=== PATIENT | male | born 1975 | race Caucasian/White ===

== ENCOUNTER 2020-09-10 09:27 | Day surgery (SDC) | payer BC ==
--- NOTE | 2020-09-10 09:11 | PCM.PREANE ---
Preanesthetic Assessment - Anesthesia/Transfusion/Family Hx Anesthesia History: Prior Anesthesia Without Reaction Other Type of Anesthesia Reaction Comment: hx: motion sickness, denies any known prblm w/anesthesia in past Transfusion History: Prior Transfusion Without Reaction - Review of Systems General: No Symptoms Pulmonary: No Symptoms Cardiovascular: No Symptoms Gastrointestinal: No Symptoms Neurological: No Symptoms Other: Reports: None - Physical Assessment NPO Status Date: 09/10/20 NPO Status Time: 00:00 Height: 5 ft 11 in Weight: 213 lb ASA Class: 2 Mental Status: Alert & Oriented x3 Airway Class: Mallampati = 2 Dentition: Reports: Normal Dentition ROM/Head Extension: Full Lungs: Clear to Auscultation, Normal Respiratory Effort Cardiovascular: Regular Rate, Regular Rhythm - Allergies Allergies/Adverse Reactions: Allergies Allergy/AdvReac Type Severity Reaction Status Date / Time No Known Allergies Allergy Verified 09/08/20 16:09 - Acknowledgements Anesthesia Type Planned: General Anesthesia Pt an Appropriate Candidate for the Planned Anesthesia: Yes Alternatives and Risks of Anesthesia Discussed w Pt/Guardian: Yes Pt/Guardian Understands and Agrees with Anesthesia Plan: Yes PreAnesthesia Questionnaire HEENT History: Reports: Other (See Below) Other HEENT History: wears glasses Cardiovascular History: Reports: High Cholesterol Other Cardiovascular History: was prescribed medication for cholesterol but doesn't take it Respiratory History: Reports: None Gastrointestinal History: Reports: Chronic Diarrhea, GERD, Hiatal Hernia Other Gastrointestinal History: takes OTC [employer] occasionally, c/o left side abdominal pain Genitourinary History: Reports: None Musculoskeletal History: Reports: Back Pain, Chronic Neurological History: Reports: Other (See Below) Other Neuro History: Claustrophobic Psychiatric History: Reports: None Endocrine/Metabolic History: Reports: None Hematologic History: Reports: None Immunologic History: Reports: None Oncologic (Cancer) History: Reports: None Dermatologic History: Reports: None - Past Surgical History Head Surgeries/Procedures: Reports: None Cardiovascular Surgical History: Reports: None GI Surgical History: Reports: Cholecystectomy, Other (See Below) Other GI Surgeries/Procedures: Excision of Mesenteric cyst- had post-op bleeding and was in ICU for many days Male Surgical History: Reports: None Endocrine Surgical History: Reports: None Neurological Surgical History: Reports: None Musculoskeletal Surgical History: Reports: None Oncologic Surgical History: Reports: None Dermatological Surgical History: Reports: None - SUBSTANCE USE Tobacco Use Status *Q: Current Some Day Tobacco User Tobacco Use Within Last Twelve Months: Snuff/Dip Recreational Drug Use History: No - HOME MEDS Home Medications: Home Meds . [No Known Home Meds] 07/16/14 [History] - CURRENT (IN HOUSE) MEDS Current Meds: Current Medications Lactated Ringer's (Ringers, Lactated) 1,000 mls @ 125 mls/hr IV ASDIRECTED AMPARO Discontinued Medications Propofol (Diprivan 100 Ml) Confirm Administered Dose 100 mls @ as directed .ROUTE .STK-MED ONE Stop: 09/10/20 08:32
[~2020-09-10 09:27] MED LIST: Lactated Ringers 1,000 ML IV SCH; propofoL 100 ML ONE
[2020-09-10] MEDS ORDERED: fentaNYL 100 MCG/2 ML SDV ONE (10:58)
[2020-09-10] MEDS ORDERED: Lidocaine 2% 5 ML SDV ONE (11:31)
[2020-09-10] MEDS ORDERED: Ondansetron 4 MG/2 ML SDV ONE (11:31)
--- NOTE | 2020-09-10 11:34 | PCM.POSTAN ---
POST ANESTHESIA ASSESSMENT - MENTAL STATUS Mental Status: Alert, Oriented - VITAL SIGNS Vital Signs: Last Vital Signs Temp 97.5 F 09/10/20 10:40 Pulse 69 09/10/20 10:40 Resp 16 09/10/20 10:40 BP 144/85 H 09/10/20 10:40 Pulse Ox 98 09/10/20 10:40 - RESPIRATORY Respiratory Status: Respiratory Rate WNL, Airway Patent, O2 Saturation Stable - CARDIOVASCULAR CV Status: Pulse Rate WNL, Blood Pressure Stable - GASTROINTESTINAL GI Status: No Symptoms - POST OP HYDRATION Hydration Status: Adequate & Stable
--- NOTE | 2020-09-10 11:35 | PCM48HPAN ---
Post Anesthesia Note - EVALUATION WITHIN 48HRS OF ANESTHETIC Vital Signs in Normal Range: Yes Patient Participated in Evaluation: Yes Respiratory Function Stable: Yes Airway Patent: Yes Cardiovascular Function Stable: Yes Hydration Status Stable: Yes Pain Control Satisfactory: Yes Nausea and Vomiting Control Satisfactory: Yes Mental Status Recovered: Yes Vital Signs: Last Vital Signs Temp 97.5 F 09/10/20 10:40 Pulse 69 09/10/20 10:40 Resp 16 09/10/20 10:40 BP 144/85 H 09/10/20 10:40 Pulse Ox 98 09/10/20 10:40
--- NOTE | 2020-09-10 11:41 | PCM.OPNOTE ---
- General Post-Op/Procedure Note Date of Surgery/Procedure: 09/10/20 Operative Procedure(s): Colonoscopy Pre Op Diagnosis: Decreased stool caliber Post-Op Diagnosis: No evidence of neoplasia Anesthesia Technique: MAC (ASA II) Primary Surgeon: Nam Fregoso Condition: Good Free Text/Narrative:: Intake & Output 09/09/20 09/10/20 09/10/20 19:59 03:59 11:59 Intake Total 900 Balance 900 DICTATION [id number] CPT CODE 02751
[2020-09-10] MEDS ORDERED: Lactated Ringers 1,000 ML IV SCH (11:45)
[2020-09-10 12:18] VITALS: BP 120/80; PULSE 77
--- NOTE | 2020-09-10 12:46 | OR ---
SURGEON: Nam Fregoso M.D. DATE OF PROCEDURE: 09/10/2020 OPERATION PERFORMED: Colonoscopy. PRIMARY SURGEON: Nam Fregoso MD ANESTHESIA: MAC. ASA CLASSIFICATION: II. PREOPERATIVE DIAGNOSES: Change in bowel habits with decreasing caliber of stool. POSTOPERATIVE DIAGNOSIS: No evidence of neoplasia. DESCRIPTION OF PROCEDURE: The patient was taken to the endoscopy room, positioned on the endoscopy table in the left lateral decubitus position. Time-out was called for appropriate identification of the patient and procedure. Monitored anesthesia care was provided. The colonoscope was inserted into the rectum and advanced with minimal difficulty to the cecum. The cecum was identified by internal landmarks and external pressure. The colonoscope was retroflexed in the cecum to visualize the ascending colon from below, then straightened, and slowly withdrawn. The cecum, ascending colon, hepatic flexure, transverse colon, splenic flexure, descending colon, sigmoid colon, and rectum were very well visualized. No tumors, polyps, diverticula, or angiodysplastic changes were noted. There was no appearance of extrinsic compression to the colon anywhere along the lower gastrointestinal tract. Once the colonoscope was withdrawn to the rectum, it was retroflexed to visualize the anal orifice from above. Again, no tumors or polyps were seen and there were no obvious stricture or neoplastic process noted in the rectum. The colonoscope was then straightened, the rectum aspirated, and the colonoscope removed. The patient tolerated the procedure well and was taken to recovery room in stable condition. KEITH / TOPHER /[id number]
== END 2020-09-10 12:18 | disposition home or self-care (01) ==
LOC: MW.SDS 09:27
PROVIDERS: ATTEND Surgery
DX: R19.4 Change in bowel habit (principal); E78.00 Pure hypercholesterolemia, unspecified; F17.210 Nicotine dependence, cigarettes, uncomplicated; Z01.812 Encounter for preprocedural laboratory examination; Z20.822 Contact with and (suspected) exposure to COVID-19; Z98.890 Other specified postprocedural states
CPT/HCPCS: 45378; 87635; J2405; J2704; J3010; J7120; U0002